=== PATIENT | male | born 1965 | race Caucasian/White ===

== ENCOUNTER 2017-05-13 15:20 | Emergency (ER) | payer OTHER ==
[~2017-05-13] VITALS: Ht 177.8 cm; Wt 92.5 kg
[2017-05-13] MEDS ORDERED: FLOMAX0.4 MG PO (15:35)
[2017-05-13] MEDS ORDERED: OXYBUTYNIN CHLOR5 MG PO (15:36)
[2017-05-13] MEDS ORDERED: KETOROLAC TROME10 MG PO (17:09)
== END 2017-05-13 17:15 | disposition home or self-care (01) ==
LOC: ED 15:20
DX: R10.9 Unspecified abdominal pain (principal); C67.9 Malignant neoplasm of bladder, unspecified; Z88.1 Allergy status to other antibiotic agents; Z79.899 Other long term (current) drug therapy
CPT/HCPCS: 80053; 81001; 85025; 99283; J7030